=== PATIENT | male | born 1975 | race African-American/Black ===

== ENCOUNTER 2017-09-04 19:47 | Emergency (ER) | payer SELFPAY ==
[~2017-09-04] VITALS: Ht 182.9 cm; Wt 100.0 kg
[2017-09-04] MEDS ORDERED: LIDOCAINE 5% OINTMENT TOP STA ×2 (23:38→23:58)
[2017-09-05 02:44] LABS: BASOPHILS % 0.6 % (0.0-2.0); EOSINOPHILS % 1.1 % (0.0-5.0); HEMATOCRIT. 42.3 % (42.0-52.0); HEMOGLOBIN. 14.1 g/dL (14.0-18.0); LYMPHOCYTES % 53.2 % (20.0-50.0); MEAN CORPUSCULAR HEMOGLOBIN 29.8 pg (28.0-32.0); MEAN CORPUSCULAR VOLUME 89.5 fL (80.0-94.0); MONOCYTES % 11.6 % (2.0-8.0); NEUTROPHILS % 33.5 % (40.0-76.0); PLATELET 169 x1000/uL (130-400); RED BLOOD CELL COUNT 4.72 mill/uL (4.7-6.1); RED CELL DISTRIBUTION WIDTH 14.1 % (11.6-14.6)
[2017-09-05 03:47] VITALS: BP 138/75
== END 2017-09-05 03:48 | disposition home or self-care (01) ==
LOC: ER 22:15
DX: K64.4 Residual hemorrhoidal skin tags (principal); F17.200 Nicotine dependence, unspecified, uncomplicated; F12.10 Cannabis abuse, uncomplicated
CPT/HCPCS: 36415; 85025; 93005; 99285